=== PATIENT | female | born 1965 | race Caucasian/White ===

== ENCOUNTER 2017-07-09 10:32 | Outpatient (CLI) | payer OTHER ==
--- NOTE | 2017-07-09 11:41 | RAD ---
LEFT SHOULDER THREE VIEWS: History: 52-year-old female with history of left shoulder pain. FINDINGS: No fracture or dislocation. Mild degenerative changes. IMPRESSION: Mild degenerative changes. No fracture or dislocation or other acute process. POS: OFF
== END 2017-07-09 10:33 | disposition home or self-care (01) ==
LOC: RAD-FRANK 10:32
PROVIDERS: ATTEND Nurse Practitioner Family
DX: M25.512 Pain in left shoulder (principal); M19.012 Primary osteoarthritis, left shoulder

== ENCOUNTER 2018-05-23 14:00 | Outpatient (CLI) | payer OTHER ==
--- NOTE | 2018-05-23 15:14 | RAD ---
CHEST 2 VIEWS: Date: 05/23/18 HISTORY: Chest pain. COMPARISON: None. FINDINGS: The lungs are clear. No pneumothorax or effusion. Cardiac silhouette and mediastinal contour within n ormal limits, aside from left atrial enlargement. No acute osseous abnormality. IMPRESSION: Left atrial enlargement, otherwise no acute intrathoracic abnormality. POS: [facility]
== END 2018-05-23 14:01 | disposition home or self-care (01) ==
LOC: RAD-FRANK 14:00
PROVIDERS: ATTEND Nurse Practitioner Family
DX: R07.9 Chest pain, unspecified (principal); I51.7 Cardiomegaly
CPT/HCPCS: 71046

== ENCOUNTER 2018-08-22 11:06 | Outpatient (CLI) | payer OTHER ==
--- NOTE | 2018-08-22 11:42 | RAD ---
4 views cervical spine. HISTORY: Neck pain. AP, lateral, open-mouth odontoid and swimmer's views cervical spine obtained. Images demonstrate no evidence of acute cervical spine fractures or bony lesions. IMPRESSION: Normal 4 views cervical spine.
== END 2018-08-22 11:07 | disposition home or self-care (01) ==
LOC: RAD-FRANK 11:06
PROVIDERS: ATTEND Nurse Practitioner Family
DX: M54.2 Cervicalgia (principal)
CPT/HCPCS: 72040

== ENCOUNTER 2018-11-20 11:39 | Outpatient (CLI) | payer OTHER ==
--- NOTE | 2018-11-20 11:55 | RAD ---
EXAM: Chest 2 views: HISTORY: Chest pain COMPARISON: 05/23/2018 FINDINGS: There is a normal-sized cardiomediastinal silhouette. There is no evidence of consolidation, mass, or pleural effusion. The bones are unremarkable. IMPRESSION: No evidence of acute cardiopulmonary disease
== END 2018-11-20 11:40 | disposition home or self-care (01) ==
LOC: RAD-FRANK 11:39
PROVIDERS: ATTEND Nurse Practitioner Family
DX: R50.9 Fever, unspecified (principal)
CPT/HCPCS: 71046

== ENCOUNTER 2018-11-21 05:09 | Inpatient (IN) | payer BC, SELFPAY ==
[2018-11-21 05:52] LABS: #Lymphocytes 0.6 thou/uL (1.20-3.40); #Monocytes 0.6 thou/uL (0.11-0.59); #Neutrophils 7.6 thou/uL (1.40-6.50); %Basophils 0.3 % (0.0-1.0); %Lymphocytes 7.1 % (21.0-51.0); %Monocytes 6.3 % (0.0-10.0); %Neutrophils 86.4 % (42.0-75.0); Hemoglobin 12.9 g/dL (12.0-16.0); Mean Corpuscular HGB CONC 34.8 g/dL (32.0-36.0); Mean Corpuscular Hemoglobin 29.9 pg (27.0-31.0); Mean Corpuscular Volume 85.8 fL (78.0-98.0); Mean Platelet Volume 7.3 fL (7.4-10.4); Platelet Count 256 thou/uL (130-400); RBC Distribution Width 13.6 % (11.5-14.5); Red Blood Cell (RBC) Count 4.33 mill/uL (4.20-5.40); White Blood Cell (WBC) Count 8.8 thou/uL (4.8-10.8)
[2018-11-21 06:21] LABS: ALT (SGPT) 25 U/L (8-55); AST (SGOT) 51 U/L (5-34); Albumin 3.7 g/dL (3.5-5.0); Alkaline Phosphatase 129 U/L (40-150); Anion Gap 15 mmol/L (10-20); BUN (Urea Nitrogen) 14 mg/dL (9.8-20.1); Bilirubin, Total 0.5 mg/dL (0.2-1.2); Calc. Creatinine Clearance 0 mL/min (70-130); Calcium 8.7 mg/dL (7.8-10.44); Carbon Dioxide 20 mmol/L (22-29); Chloride 92 mmol/L (98-107); Estimated GFR-MDRD 45; Globulin 3.1 g/dL (2.4-3.5); Glucose 362 mg/dL (70-105); Potassium 3.3 mmol/L (3.5-5.1); Protein, Total 6.8 g/dL (6.0-8.3); Sodium 124 mmol/L (136-145)
[2018-11-21] MEDS ORDERED: Acetaminophen 500 MG TAB ONE (06:41)
[2018-11-21] MEDS ORDERED: Insulin Regular 300 UNITS/3 ML VIAL ONE (06:41)
--- NOTE | 2018-11-21 07:50 | RAD ---
XR Chest 1 View Portable HISTORY: Fever COMPARISON: None FINDINGS: The heart size is normal. The lungs are well expanded without focal areas of consolidation, pneumothorax or pleural effusions. IMPRESSION: No radiographic evidence of acute cardiopulmonary process.
[2018-11-21] MEDS ORDERED: Potassium Chloride 20 MEQ TAB ONE (08:06)
[2018-11-21 08:12] LABS: Base Excess-Venous -5.5 mmol/L (-2.0 to 3.0); Bicarbonate (HCO3v) 18.2 mmol/L (22.0-28.0); CO2 Tension (PvCO2) 29.7 mmHg (40.0-50.0); Calcium, Ionized 1.03 mmol/L (See Comments:); Chloride 94 mmol/L (98-107); Hemoglobin - Calc 12.1 g/dL (12.0-16.0); Potassium 2.9 mmol/L (3.5-5.1); Sodium 126 mmol/L (138-145); T. Carbon Dioxide 19.1 mmol/L (22.0-28.0); vO2 Saturation-calc 92.9 % (60.0-85.0)
[2018-11-21] MEDS ORDERED: Dextrose 50% Abboject 50 ML SYRINGE SLOW IVP PRN (08:21)
[2018-11-21] MEDS ORDERED: Dextrose 5% in Water 1,000 ML IV PRN (08:21)
[2018-11-21] MEDS ORDERED: 1/2 NS w/KCL 20 mEq 1,000 ML IV SCH (08:30)
[2018-11-21 08:45] LABS: Bilirubin Negative (Negative); Blood, Urine Negative (Negative); Clarity Turbid (Clear); Glucose, Urine (Dipstick) Greater than 1000 mg/dL (Negative); Leukocyte 500 Leu/uL (Negative); Nitrite Negative (Negative); Protein, Urine (Dipstick) Negative (Neg-Trace); RBC/HPF 0-3 HPF (0-3); Urobilinogen Normal mg/dL (Less than 2); WBC/HPF 21-50 HPF (0-3)
[2018-11-21 08:48] LABS: Bacteria/HPF 2+ HPF (None Seen)
[2018-11-21] MEDS ORDERED: Potassium Chloride 20 MEQ in Premix Bag 1 BAG IVPB SCH (09:00)
[2018-11-21 09:02] LABS: Lipase 14 U/L (8-78); Magnesium 1.8 mg/dL (1.6-2.6)
[2018-11-21 09:06] LABS: Phosphorus 1.7 mg/dL (2.3-4.7)
[2018-11-21] MEDS ORDERED: Potassium Chloride 40 MEQ in Premix Bag 1 BAG IVPB SCH (10:45)
[2018-11-21] MEDS ORDERED: Ondansetron PF 4 MG/2 ML Vial ONE (11:20)
[2018-11-21] MEDS ORDERED: Ondansetron ODT 4 MG TAB ONE (11:20)
[2018-11-21] MEDS ORDERED: Acetaminophen 325 MG TAB ONE ×2 (12:32→13:53)
[2018-11-21] MEDS ORDERED: Acetaminophen 325 MG TAB PO SCH (12:45)
[2018-11-21] MEDS ORDERED: hydrALAZINE 20 MG/ML VIAL SLOW IVP PRN (12:45)
[2018-11-21] MEDS: Ondansetron ODT 4 MG TAB PO PRN (12:52)
[2018-11-21] MEDS ORDERED: Vancomycin HCl 1 GM in Premix Bag 1 BAG IVPB SCH (13:00)
[2018-11-21] MEDS ORDERED: Famotidine/PF 20 mg/2ml Vial ONE (13:53)
[2018-11-21] MEDS ORDERED: Levofloxacin 500 mg/D5W 100 ml Premix Bag ONE (13:53)
[2018-11-21] MEDS ORDERED: Ibuprofen 200 MG TAB ONE (13:57)
[2018-11-21] MEDS ORDERED: Gentamicin Sulfate 80 MG in Premix Bag 1 BAG IVPB SCH (14:45)
[2018-11-21] MEDS: Famotidine/PF 20 mg/2ml Vial SLOW IVP SCH ×2 (14:54→20:11)
[2018-11-21 14:58] VITALS: BMI 30.4
[2018-11-21] MEDS ORDERED: hydrALAZINE 20 MG/ML VIAL ONE (15:13)
[2018-11-21] MEDS ORDERED: Potassium Phosphate 15 MMOL in Sodium Chloride 0.9% 250 ML 250 ML IVPB SCH (15:15)
--- NOTE | 2018-11-21 15:31 | CT ---
CT STONE PROTOCOL: HISTORY:Fever, sepsis COMPARISON: None DISCLAIMER: Absence of oral and IV contrast reduces the sensitivity of the exam particularly for the evaluation of solid organs and bowel. FINDINGS: The lung bases are clear. No free air or free fluid is seen in the abdomen or pelvis. The patient is status post cholecystectomy. There is a 1.5 cm calculus in the superior calyx of the left kidney. No calculi are seen in the right kidney, either ureter or the urinary bladder. No hydroureteronephrosis is noted in either side. There is fecal material in the colon. No aneurysmal dilatation of the abdominal aorta is seen. Degene rative changes are seen in the spine. IMPRESSION: Nonobstructing 15 mm calculus in the left kidney.
--- NOTE | 2018-11-21 15:39 | HP ---
PRIMARY CARE PHYSICIAN: Bebe Fountain. CHIEF COMPLAINT: Fever with elevated blood sugar over the last 3 days. HISTORY OF PRESENT ILLNESS: The patient is a 53-year-old female with diabetes mellitus type 1, on insulin pump with recurrent UTIs, presented to the emergency room with above complaints. Last hospitalization at this facility was in 2017 for pyelonephritis requiring PICC line and Invanz for 2 weeks as outpatient. She was seen by Infectious Disease at that time. The patient presented to the emergency room with fever, nausea, vomiting, along with elevated blood sugar over the last 3 days. She also had some right-sided flank pain along with burning in the urination. She had a dry cough without any production. Vomitus was nonbilious. She denies any abdominal pain, diarrhea, or constipation. Her maximum temperature at home was 102 degree Fahrenheit. In the emergency room, initial vital signs showed temperature of 102.8, respirations of 18, pulse rate of 99 with blood pressure of 121/69, O2 saturation 96% on room air. PAST MEDICAL HISTORY: 1. Diabetes mellitus type 1 diagnosed at the age of 21, currently on insulin pump with diabetic retinopathy, neuropathy. 2. History of recurrent UTIs. 3. Pyelonephritis. 4. Hypertension. 5. History of Karen thyroiditis. 6. Anxiety and depression. PAST SURGICAL HISTORY: 1. Appendectomy. 2. Cholecystectomy. 3. Hysterectomy. 4. Partial nephrectomy. 5. Tonsillectomy. ALLERGIES: THE PATIENT IS ALLERGIC TO SEVERAL MEDICATIONS INCLUDING ASPIRIN, CIPRO, KEFLEX, NSAIDS, PENICILLIN, SULFA. FAMILY HISTORY: Negative for heart disease. SOCIAL HISTORY: The patient currently lives at home with her family. She denies current use of tobacco, alcohol, or drug use. REVIEW OF SYSTEMS: All other review of systems was reviewed and was found negative. PHYSICAL EXAMINATION: VITAL SIGNS: As discussed above. GENERAL: A 53-year-old female, ill-appearing. HEENT: Head, atraumatic and normocephalic. Sclerae anicteric. Moist mucous membranes. No oral lesion. NECK: Supple. No JVD. No carotid bruit. LUNGS: Clear to auscultation bilaterally. No wheezing, rales, or rhonchi. HEART: S1, S2 present. Regular rate and rhythm. No rubs or gallops appreciated. ABDOMEN: Soft, nontender. Bowel sounds present. There is right-sided flank tenderness. EXTREMITIES: No edema or calf tenderness. NEUROLOGIC: Grossly nonfocal. Moves all 4 extremities. PSYCHIATRY: Alert, awake, oriented x3. SKIN: Warm and dry. LYMPH NODE: No palpable lymph nodes in the neck. PERIPHERAL VASCULAR: Radial pulses palpable bilaterally. MUSCULOSKELETAL: No joint swelling tenderness. LABORATORY FINDINGS: WBC 8.8 with 86% neutrophil. Potassium 2.9 with hemoglobin A1c 9.0, phosphorus 1.7. Troponin was negative. Urinalysis showed 21 to 50 wbc's with 2+ bacteria. Ketones 1.86. Influenza testing was negative. Chest x-ray by my review was negative for infiltrate. EKG by my review showed sinus rhythm with incomplete right bundle branch block, left anterior fascicular block. IMPRESSION: 1. Sepsis with acute organ dysfunction secondary to acute pyelonephritis, rule out obstructive uropathy. 2. Multiple electrolyte abnormalities including hyponatremia with sodium 126, hypokalemia and hypophosphatemia. 3. Diabetes mellitus type 1 with diabetic ketoacidosis. 4. Metabolic acidosis secondary to diabetic ketoacidosis. 5. History of recurrent urinary tract infection. 6. Obesity with a BMI of 30.4. 7. Hypertension. 8. Anxiety. 9. Hypothyroidism. 10. The patient will require 2 to 3 days for stabilization. PLAN: Start IV Vancomycin and Meropenem. Blood and urine cultures sent. Cont Insulin pump. Add moderate sliding scale. IVF. Q4h sugar checks. Replace electrolytes. Resume selected home meds. Plan of care was discussed with the patient in detail. She stated understanding. Job ID: [id number] MTDD
[2018-11-21] MEDS ORDERED: Vancomycin HCl 750 MG in Sodium Chloride 0.9% 250 ML 250 ML IVPB SCH (16:00)
[2018-11-21] MEDS: Famotidine 20 MG TAB PO SCH ×2 (17:26→20:05)
[2018-11-21] MEDS: 1/2 NS w/KCL 20 mEq 1,000 ML IV SCH ×2 (17:30→22:06)
--- NOTE | 2018-11-21 17:35 | HP ---
PRIMARY CARE PHYSICIAN: Bebe Smith at [facility]. CHIEF COMPLAINT: Nausea, vomiting, fever, and elevated blood sugar. HISTORY OF PRESENT ILLNESS: Ms. Panda is a 53-year-old female with a past medical history of hypertension, diabetes mellitus type 1 on insulin, Karen thyroiditis, chronic pyelonephritis, which she sees Dr. Tripathi for chronic UTIs, who had presented to [facility] earlier this morning with her parents due to worsening fever, generalized malaise, cough, abdominal pain, nausea, and vomiting over the last 4 days. She states that her fever has gotten up more itself 104 at home. Upon arriving to [facility], her temp max was found to be 102. She is also reported that her blood sugars have been quite elevated throughout this time as well. She had usually used an insulin pump, however, this was not working to bring her blood sugars down well enough; therefore, she was using insulin shots. She states that she sees an director of archives, Dr. Lucia Galarza in [place] for her diabetes. During her initial workup, portable chest x-ray was found to be unremarkable. Influenza A and B were both negative. Her blood sugar was elevated at 362 and her potassium was low at 3.3, she was treated with 10 units of insulin along with 2 L of IV fluids, recheck showed that the potassium actually dropped to 2.9; therefore, she was given potassium replacement. Hemoglobin A1c was checked and found to be 9.0. Urinalysis showed urine bacteria 2+, 4 to 6 squamous epithelial cells, 21 to 50 wbc's, 500 leukocyte esterase, greater than 1000 glucose, 40 ketones. She also reported some frequency, urgency, and some mild dysuria, however, denied any flank pain. She denied any headache, blurred vision, dizziness, any chest pain, palpitations, any shortness of breath, or any swelling on her upper or lower extremities. She, however, did report fever, chills, generalized malaise, cough which was nonproductive in nature, some mild abdominal pain and bloating with nausea, vomiting x2 episodes late last night. REVIEW OF SYSTEMS: All other systems were reviewed and found to be negative unless mentioned in HPI. PAST MEDICAL HISTORY: Hypertension, hypothyroidism, diabetes mellitus type 1, and chronic pyelonephritis. PAST SURGICAL HISTORY: Appendectomy, cholecystectomy, hysterectomy, nephrectomy on the right, and tonsillectomy. PSYCHIATRIC HISTORY: Includes anxiety and depression. SOCIAL HISTORY: The patient lives at home with her family and her son. She denies any alcohol, tobacco, or illicit drug use. KNOWN ALLERGIES: Aspirin, ciprofloxacin, cephalosporins, NSAIDs, penicillin, sulfa, and Velosef. CURRENT HOME MEDICATIONS: 1. Furosemide 40 mg oral twice daily. 2. Losartan 100 mg oral daily. 3. Effexor 50 mg oral once daily. 4. Hydralazine 25 mg oral once daily. 5. Levothyroxine 175 mcg oral daily. PHYSICAL EXAMINATION: VITAL SIGNS: Blood pressure 111/57, pulse 85, respirations 16, temperature 99.1 , and O2 saturation 93% on room air. GENERAL: The patient is awake, alert, and oriented x3. She is currently lying comfortably in bed and in no acute distress. Her family is at bedside. HEENT: Atraumatic and normocephalic. Pupils are round and reactive to light. Extraocular muscles intact. Moist mucous membranes noted. NECK: Soft and supple. Trachea midline. CARDIOVASCULAR: Positive S1 and S2. Regular rate and rhythm. No murmur auscultated. RESPIRATORY: Clear to auscultation bilaterally. No wheezes, rales, or rhonchi. ABDOMEN: Soft. Some mild diffuse tenderness noted and hyperactive bowel sounds. MUSCULOSKELETAL: Strength 5+ bilaterally in upper and lower extremities. Moves all extremities equal. No edema noted. NEUROLOGIC: Cranial nerves 2 through 12 grossly intact. No focal deficits noted. Speech intact and normal. Gait not assessed. SKIN: Warm, dry, and intact. No rashes. No ulceration noted. PSYCHIATRIC: Good mood and affect. LABORATORY DATA: WBC 8.8, RBC 4.33, hemoglobin 12.9, hematocrit 37.1, platelet 256. Sodium 126, potassium 2.9, anion gap 15, BUN 14, creatinine 1.26, estimated GFR 45, glucose 399. Hemoglobin A1c 9.0. Lactic acid 1.1, calcium 8.7, magnesium 1.8, lipase 14. Urinalysis showed 2+ bacteria, 21 to 50 wbc, 4 to 6 squamous epithelial cells, 500 leukocyte esterase, 40 ketones greater than 1000 glucose. Beta hydroxybutyrate 1.86. DIAGNOSTIC IMAGING: Portable chest x-ray showed no evidence of acute cardiopulmonary process. ASSESSMENT AND PLAN: 1. Uncontrolled diabetes, type 1. The patient will be placed on insulin sliding scale at this time with frequent Accu-Cheks. Her A1c was found to be 9.0. We will recheck BMP and beta hydroxybutyrate. She will also be started on maintenance fluids at this time. She had currently received a total of 2 L so far in the ED. 2. Fever. We will treat symptomatically at this time and monitor symptoms closely. Her urinalysis showed some bacteria and leukocyte esterase; however, there were some squamous epithelial cells. Due to the patient 's frequent history of urinary tract infections, we will send for culture along with blood cultures prior to starting antibiotics. White count is normal at this time. 3. Hypokalemia: She was replaced in the ED, we will recheck potassium level and BMP and monitor closely and replace as needed. 4. Hypertension, currently stable at this time. She will be resumed on her home regimen. 5. Acute on chronic kidney disease, stage 2. As above, she will be started on maintenance fluids. We will hold nephrotoxic medications until her renal status returns to baseline. 6. Hypothyroidism. Continue home dose of levothyroxine and we will check a TSH. 7. Deep venous thrombosis and gastrointestinal prophylaxis. 8. Code status. Full code. DISPOSITION: Pending further workup and clinical findings, the patient will likely be discharged home in the next 1 to 2 days. Job ID: [id number] MTDD
[2018-11-21] MEDS: Acetaminophen 325 MG TAB PO PRN (20:04)
[2018-11-21] MEDS: Carvedilol 3.125 MG TAB PO SCH (20:05)
[2018-11-21] MEDS: Insulin Regular 300 UNITS/3 ML VIAL SC PRN (20:06)
[2018-11-21] MEDS: Senokot S 8.6-50 MG TAB PO SCH (20:11)
[2018-11-21] MEDS ORDERED: Meropenem 1 GM in Sodium Chloride 0.9% 100 ML IVPB SCH (22:00)
[2018-11-21] MEDS ORDERED: MEROPENEM 1 GM/50 ML 1 GM in Premix Bag 1 BAG IVPB SCH (22:30)
[2018-11-21] MEDS: Melatonin 3 MG TAB PO PRN (22:42)
[2018-11-22] MEDS: Vancomycin HCl 750 MG in Sodium Chloride 0.9% 250 ML 250 ML IVPB SCH ×2 (02:53→18:58)
[2018-11-22] MEDS: Ondansetron PF 4 MG/2 ML Vial IVP PRN ×3 (04:13→19:49)
[2018-11-22] MEDS: Insulin Regular 300 UNITS/3 ML VIAL SC PRN ×5 (04:51→16:16)
[2018-11-22] MEDS: Acetaminophen 325 MG TAB PO PRN ×3 (05:05→21:58)
[2018-11-22] MEDS: Levothyroxine 150 MCG TAB PO SCH (05:06)
[2018-11-22 05:11] LABS: #Lymphocytes 1.7 thou/uL (1.20-3.40); #Monocytes 1.1 thou/uL (0.11-0.59); #Neutrophils 7.3 thou/uL (1.40-6.50); %Basophils 0.1 % (0.0-1.0); %Eosinophils 0.2 % (0.0-10.0); %Monocytes 11.1 % (0.0-10.0); %Neutrophils 71.7 % (42.0-75.0); Hemoglobin 13.2 g/dL (12.0-16.0); Mean Corpuscular HGB CONC 33.7 g/dL (32.0-36.0); Mean Corpuscular Hemoglobin 29.8 pg (27.0-31.0); Mean Corpuscular Volume 88.2 fL (78.0-98.0); Mean Platelet Volume 7.4 fL (7.4-10.4); Platelet Count 229 thou/uL (130-400); RBC Distribution Width 13.7 % (11.5-14.5); Red Blood Cell (RBC) Count 4.44 mill/uL (4.20-5.40); White Blood Cell (WBC) Count 10.2 thou/uL (4.8-10.8)
[2018-11-22 05:34] LABS: ALT (SGPT) 31 U/L (8-55); AST (SGOT) 36 U/L (5-34); Albumin 3.6 g/dL (3.5-5.0); Alkaline Phosphatase 123 U/L (40-150); Anion Gap 15 mmol/L (10-20); BUN (Urea Nitrogen) 9 mg/dL (9.8-20.1); Bilirubin, Total 0.4 mg/dL (0.2-1.2); Calc. Creatinine Clearance 89 mL/min (70-130); Calcium 8.6 mg/dL (7.8-10.44); Carbon Dioxide 20 mmol/L (22-29); Chloride 99 mmol/L (98-107); Estimated GFR-MDRD 54; Glucose 324 mg/dL (70-105); Lipase 16 U/L (8-78); Protein, Total 6.6 g/dL (6.0-8.3); Sodium 130 mmol/L (136-145)
[2018-11-22 05:44] LABS: Phosphorus 2.3 mg/dL (2.3-4.7)
[2018-11-22] MEDS: MEROPENEM 1 GM/50 ML 1 GM in Premix Bag 1 BAG IVPB SCH ×3 (05:54→21:49)
[2018-11-22] MEDS: Famotidine/PF 20 mg/2ml Vial SLOW IVP SCH (08:17)
[2018-11-22] MEDS: 1/2 NS w/KCL 20 mEq 1,000 ML IV SCH ×2 (08:18→12:26)
[2018-11-22] MEDS: Senokot S 8.6-50 MG TAB PO SCH ×2 (08:24→20:41)
[2018-11-22] MEDS: Carvedilol 3.125 MG TAB PO SCH ×2 (08:27→20:36)
[2018-11-22] MEDS: Famotidine 20 MG TAB PO SCH ×2 (08:28→20:41)
[2018-11-22] MEDS: DULoxetine 60 MG CAP PO SCH (08:28)
[2018-11-22] MEDS ORDERED: Escitalopram Oxalate 20 mg Tablet PO SCH (09:00)
--- NOTE | 2018-11-22 10:52 | PDOC.HOSPP ---
- Subjective Encounter Date: 11/22/18 Encounter Time: 08:00 Subjective: Patient seen and examined for Sepsis. Feels somewhat better. Fever/flank pain + . No other complaints. No overnight events - Objective Vital Signs & Weight: Vital Signs (12 hours) Temp Pulse Resp BP Pulse Ox 11/22/18 08:56 100.9 F H 90 18 120/61 99 11/22/18 08:00 99 11/22/18 07:29 96 11/22/18 04:17 99.0 F 83 16 130/68 96 11/21/18 23:57 99.8 F H 81 16 108/57 L 95 Weight Weight 199 lb 15.348 oz I&O: 11/21/18 11/22/18 11/23/18 06:59 06:59 06:59 Intake Total 1080 1250 Balance 1080 1250 Result Diagrams: 11/22/18 04:51 11/22/18 04:51 Additional Labs: Accuchecks 11/22/18 11/22/18 11/21/18 08:00 04:04 23:53 POC Glucose 289 H 268 H 306 H 11/21/18 11/21/18 20:03 17:14 POC Glucose 303 H 349 H Radiology Reviewed by me: Yes (CT stone protocol - Renal calculi) Hospitalist ROS - Review of Systems Cardiovascular: denies: chest pain, palpitations, orthopnea, paroxysmal noc. dyspnea, edema, light headedness, other Gastrointestinal: denies: nausea, vomitting, abdominal pain, diarrhea, constipation, melena, hematochezia, other - Medication Medications: Active Medications Generic Name Dose Route Start Last Admin Trade Name Estevanq PRN Reason Stop Dose Admin Acetaminophen 650 mg 11/21/18 08:21 11/22/18 08:27 Tylenol PO 650 mg Q4H PRN Administration Headache/Fever/Mild Pain (1-3) Carvedilol 3.125 mg 11/21/18 21:00 11/22/18 08:27 Coreg PO 3.125 mg BID JUAN Administration Duloxetine HCl 60 mg 11/22/18 09:00 11/22/18 08:28 Cymbalta PO 60 mg DAILY JUAN Administration Famotidine 20 mg 11/21/18 09:00 11/22/18 08:17 Pepcid SLOW IVP 20 mg Q12HR JUAN Administration Famotidine 20 mg 11/21/18 09:00 11/22/18 08:28 Pepcid PO Not Given BID JUAN Vancomycin HCl 750 mg/ Sodium 250 mls @ 250 mls/hr 11/22/18 03:00 11/22/18 02 :53 Chloride IVPB 250 mls 0300,1500 JUAN Administration Meropenem 1 gm/ Device 50 mls @ 100 mls/hr 11/22/18 06:00 11/22/18 05:54 IVPB 50 mls Q8HR JUAN Administration Insulin Human Regular 0 units 11/21/18 08:21 11/22/18 08:16 Humulin R SC 6 unit .MODERATE SLIDING SC PRN Administration Moderate Correctional Scale Insulin Human Regular 0 units 11/21/18 08:21 11/21/18 20:06 Humulin R SC 4 unit .BEDTIME SLIDING SC PRN Administration Bedtime Correctional Scale Levothyroxine Sodium 150 mcg 11/22/18 06:00 11/22/18 05:06 Synthroid PO 150 mcg 0600 JUAN Administration Melatonin 6 mg 11/21/18 22:25 11/21/18 22:42 Melatonin PO 6 mg HS PRN Administration Insomnia Ondansetron HCl 4 mg 11/21/18 08:21 11/21/18 12:52 Zofran Odt PO 4 mg Q6H PRN Administration Nausea/Vomiting Ondansetron HCl 4 mg 11/21/18 08:21 11/22/18 08:29 Zofran IVP 4 mg Q6H PRN Administration Nausea/Vomiting Senna/Docusate Sodium 2 tab 11/21/18 21:00 11/22/18 08:24 Senokot S PO 2 tab BID JUAN Administration - Exam General Appearance: NAD Neck: supple, no JVD Heart: RRR, no gallops, no rubs Heart - other findings: no heaves/pulsations Respiratory: CTAB, no wheezes, no ronchi Gastrointestinal: soft, non-tender, non-distended, normal bowel sounds Extremities: no cyanosis, no edema Neurological: no new deficit Psychiatric: normal affect, A&O x 3 Hosp A/P - Plan DVT proph w/SCDs IMPRESSION: 1. Sepsis with acute organ dysfunction secondary to acute pyelonephritis. 2. Hyponatremia/Hypokalemia/Hypophosphatemia. 3. Diabetes mellitus type 1 with diabetic ketoacidosis. 4. Metabolic acidosis secondary to diabetic ketoacidosis. 5. History of recurrent urinary tract infection. 6. Obesity with a BMI of 30.4. 7. Hypertension. 8. Anxiety. 9. Hypothyroidism. 10. Renal calculi - nonobstructing 11. Obesity 30.4 PLAN: Cont IV Vancomycin and Meropenem. Monitor Vancomycin level Await Blood and urine cultures Home Insulin pump not functioning. Add Lantus 10 units BID Cont moderate sliding scale. Reduce IVF to 75 ml/hr Cont Q4h sugar checks. Levothyroxine dose reduced Cont other meds as above
[2018-11-22] MEDS ORDERED: Insulin Glargine 15 UNITS in Pre-Filled Syringe SC SCH (12:15)
[2018-11-22] MEDS: Ondansetron ODT 4 MG TAB PO PRN (12:51)
[2018-11-22] MEDS: Venlafaxine HCl 25 MG TAB PO SCH (15:54)
[2018-11-22] MEDS: HYDROcodone/Acetaminophen 5/325 mg Tablet PO PRN ×2 (15:59→20:41)
[2018-11-22] MEDS: Morphine 2 MG/ML SYRINGE SLOW IVP PRN (19:51)
[2018-11-22] MEDS: Insulin Glargine 15 UNITS in Pre-Filled Syringe SC SCH (20:42)
[2018-11-22] MEDS ORDERED: Insulin Glargine 10 UNITS in Pre-Filled Syringe 1 EACH SC SCH (21:00)
[2018-11-22] MEDS: Melatonin 3 MG TAB PO PRN (21:57)
--- NOTE | 2018-11-22 22:51 | CON ---
DATE OF CONSULTATION: REASON FOR CONSULTATION: Pyelonephritis. HISTORY OF PRESENT ILLNESS: A 53-year-old patient whom I had treated in 2017 for an invasive urinary tract infection with pyelonephritis. She has type 1 diabetes mellitus and has had multiple episodes of UTIs and I do not think she ever had a cystoscopy, but previous imaging studies did not show any obstruction. At this time, she developed symptoms about a week before she went to her doctor at [facility] and was given nitrofurantoin, but persisted with symptoms and then developed flank pain in the right side with fever, hyperglycemia, was admitted and started on antimicrobial therapy. She already feels improved since admission. Some headaches, feels her eye swollen, but vision is a little bit blurred. No sore throat, odynophagia, or dysphagia. No dental pain. No back pain. A little bit of cough, but no sputum production. No dyspnea or chest pain. She has quite severe pain in the right flank area, but not in other parts of her abdomen. The dysuria has improved since she was admitted. No joint symptoms. No skin disorder. No neurological symptoms. PAST MEDICAL HISTORY: Type 1 diabetes with an insulin pump, retinopathy, neuropathy, recurrent UTIs, pyelonephritis, treated in 2017 with PICC line and IV Invanz, hypertension, Karen thyroiditis, anxiety, depression. PAST SURGICAL HISTORY: Appendectomy, cholecystectomy, hysterectomy, partial nephrectomy, tonsillectomy. ALLERGIES: ASPIRIN, CIPROFLOXACIN, PENICILLIN, SULFA DRUGS, NSAIDS, KEFLEX. FAMILY HISTORY: Noncontributory. SOCIAL HISTORY: Lives with family. Never a smoker. CURRENT MEDICATIONS: 1. Tylenol. 2. Coreg. 3. Dextrose. 4. Cymbalta. 5. Pepcid. 6. Glucagon. 7. Insulin. 8. Melatonin. 9. Meropenem. 11. Vancomycin. PHYSICAL EXAMINATION: VITAL SIGNS: T-max 102.7, she is now 100.9, BP 116/56, pulse 80, respirations 18, O2 saturation 96. SKIN: Normal. The patient has a peripheral IV access. GENERAL: She is voiding in the toilet. Does not appear in distress. HEENT: No lymphadenopathy. Mild periorbital edema. Pupils are equal. Conjunctivae are normal. Sclerae are normal. Oral cavity is normal. Numerous teeth in place with some decay. NECK: Supple. No jugular vein distention or carotid bruits. LUNGS: Symmetric, clear breath sounds. HEART: S1 and S2, regular rate. No S3, S4, or murmurs. ABDOMEN: Soft with marked flank tenderness, right side. No organomegaly. No bladder distention. EXTREMITIES: No joint inflammatory activity. No edema. Pulses are 1+ in dorsalis pedis. NEURO: Nonfocal including cognitive function. LABORATORY DATA: White cell count is 8.8, hemoglobin 12.9, platelets 256, 86% neutrophils and pH 7.39, pCO2 29, PO2 65. Chemistry, sodium 124, potassium 3.3, creatinine 1.26 and now is down to 1.06. Glucose was 3558 and AST 51. Other liver profile normal. Albumin 3.7, lipase 14. Urinalysis, 21 to 50 wbc's and microbiology with gram-negative sury retrieved from urine yet to be identified, susceptibility tested. Two set of blood cultures thus far no growth. Influenza screen was negative. Abdomen and pelvis CT, there is a 15-mm calculus in left kidney, nonobstructing. The lung bases are clear. ASSESSMENT: 1. Type 1 diabetes. 2. Recurrent urinary tract infections with one prior episode of pyelonephritis, but no evidence of obstruction in the past. No urinary retention. 3. Recurrence of pyelonephritis with likely gram-negative sury as the culprit here. No evidence of structural lesions at this point in time. We will discontinue vancomycin, continue meropenem until the final identification of the organism and then decide what outpatient therapy will be. In view of the numerous episodes, she may need a cystoscopy. She may have already had one done. We will have to double-check with the patient. Job ID: [id number] [facility]
[2018-11-23] MEDS: HYDROcodone/Acetaminophen 5/325 mg Tablet PO PRN ×2 (01:19→10:50)
[2018-11-23] MEDS: Insulin Regular 300 UNITS/3 ML VIAL SC PRN ×2 (01:21→04:17)
[2018-11-23] MEDS ORDERED: traMADol HCl 50 MG TAB PO SCH ×2 (01:30→19:45)
[2018-11-23] MEDS ORDERED: diphenhydrAMINE 25 MG CAP PO SCH (01:30)
[2018-11-23] MEDS: 1/2 NS w/KCL 20 mEq 1,000 ML IV SCH (04:05)
[2018-11-23 04:18] LABS: #Lymphocytes 1.5 thou/uL (1.20-3.40); #Monocytes 0.8 thou/uL (0.11-0.59); #Neutrophils 5.2 thou/uL (1.40-6.50); %Lymphocytes 20.4 % (21.0-51.0); %Neutrophils 69.5 % (42.0-75.0); Hemoglobin 10.6 g/dL (12.0-16.0); Mean Corpuscular HGB CONC 34.4 g/dL (32.0-36.0); Mean Corpuscular Hemoglobin 29.9 pg (27.0-31.0); Mean Corpuscular Volume 86.9 fL (78.0-98.0); Mean Platelet Volume 7.1 fL (7.4-10.4); Platelet Count 229 thou/uL (130-400); RBC Distribution Width 13.6 % (11.5-14.5); Red Blood Cell (RBC) Count 3.56 mill/uL (4.20-5.40); White Blood Cell (WBC) Count 7.5 thou/uL (4.8-10.8)
[2018-11-23 04:45] LABS: Albumin 2.9 g/dL (3.5-5.0); Anion Gap 7 mmol/L (10-20); BUN (Urea Nitrogen) 6 mg/dL (9.8-20.1); BUN/Creatinine Ratio 6.98; Calc. Creatinine Clearance 110 mL/min (70-130); Calcium 8.4 mg/dL (7.8-10.44); Carbon Dioxide 26 mmol/L (22-29); Chloride 99 mmol/L (98-107); Estimated GFR-MDRD 69; Glucose 244 mg/dL (70-105); Magnesium 1.8 mg/dL (1.6-2.6); Phosphorus 1.7 mg/dL (2.3-4.7); Potassium 3.7 mmol/L (3.5-5.1); Sodium 128 mmol/L (136-145)
[2018-11-23] MEDS: Levothyroxine 150 MCG TAB PO SCH (05:00)
[2018-11-23] MEDS: MEROPENEM 1 GM/50 ML 1 GM in Premix Bag 1 BAG IVPB SCH ×3 (05:01→22:18)
[2018-11-23] MEDS ORDERED: Potassium Phosphate 15 MMOL in Sodium Chloride 0.9% 250 ML 250 ML IVPB SCH (05:30)
[2018-11-23] MEDS: Morphine 2 MG/ML SYRINGE SLOW IVP PRN (08:15)
[2018-11-23] MEDS: Acetaminophen 325 MG TAB PO PRN ×2 (08:15→19:07)
[2018-11-23] MEDS: Ondansetron PF 4 MG/2 ML Vial IVP PRN (08:15)
[2018-11-23] MEDS ORDERED: K-Phos Neutral 250 MG TAB PO SCH (08:30)
[2018-11-23] MEDS: Carvedilol 3.125 MG TAB PO SCH ×2 (09:48→21:04)
[2018-11-23] MEDS: Famotidine 20 MG TAB PO SCH ×2 (09:48→21:03)
[2018-11-23] MEDS: DULoxetine 60 MG CAP PO SCH (09:48)
[2018-11-23] MEDS: Insulin Glargine 15 UNITS in Pre-Filled Syringe SC SCH (10:01)
[2018-11-23] MEDS: Senokot S 8.6-50 MG TAB PO SCH ×2 (10:04→21:03)
[2018-11-23] MEDS: Venlafaxine HCl 25 MG TAB PO SCH ×2 (10:04→11:05)
[2018-11-23] MEDS ORDERED: NS 0.9% w/ 20 MEQ KCL 1,000 ML/1,000 ML BAG IV SCH (10:45)
[2018-11-23] MEDS ORDERED: PROVENTIL INHALER 6.7 G (200 INHALATIONS) INH PRN (15:04)
[2018-11-23] MEDS: K-Phos Neutral 250 MG TAB PO SCH ×2 (15:08→21:03)
[2018-11-23] MEDS: traMADol HCl 50 MG TAB PO PRN (17:21)
[2018-11-23] MEDS: NS 0.9% w/ 20 MEQ KCL 1,000 ML/1,000 ML BAG IV SCH (17:24)
--- NOTE | 2018-11-23 19:44 | PDOC.HOSPP ---
- Subjective Encounter Date: 11/23/18 Encounter Time: 11:00 Subjective: Patient seen and examined for Sepsis. Rt sided flank pain. Some nausea. No vomiting. No fever or dysuria. No new complaints. No overnight events - Objective Vital Signs & Weight: Vital Signs (12 hours) Temp Pulse Resp BP Pulse Ox 11/23/18 18:45 101.0 F H 11/23/18 16:00 98.1 F 11/23/18 12:20 99.2 F 11/23/18 08:00 94 L 11/23/18 07:45 101.2 F H 94 18 136/75 94 L Weight Admit Weight 199 lb 15.348 oz Weight 199 lb 15.348 oz I&O: 11/22/18 11/23/18 11/24/18 06:59 06:59 06:59 Intake Total 1080 3880 1632 Balance 1080 3880 1632 Result Diagrams: 11/23/18 04:00 11/23/18 04:00 Additional Labs: Accuchecks 11/23/18 11/23/18 11/23/18 16:08 12:20 07:42 POC Glucose 154 H 224 H 155 H 11/23/18 11/23/18 11/22/18 04:07 00:03 20:07 POC Glucose 235 H 203 H 188 H Laboratory Tests 11/23/18 04:00 Phosphorus 1.7 L Microbiology 11/21/18 07:55 Urine voided Urine Culture - Final Klebsiella pneumoniae ssp pneu 11/21/18 07:47 Venous blood - Left Arm Blood Culture - Preliminary NO GROWTH AT 48 HOURS Hospitalist ROS - Review of Systems Cardiovascular: denies: chest pain, palpitations, orthopnea, paroxysmal noc. dyspnea, edema, light headedness, other Gastrointestinal: denies: nausea, vomitting, abdominal pain, diarrhea, constipation, melena, hematochezia, other - Medication Medications: Active Medications Generic Name Dose Route Start Last Admin Trade Name Freq PRN Reason Stop Dose Admin Acetaminophen 650 mg 11/21/18 08:21 11/23/18 19:07 Tylenol PO 650 mg Q4H PRN Administration Headache/Fever/Mild Pain (1-3) Carvedilol 3.125 mg 11/21/18 21:00 11/23/18 09:48 Coreg PO 3.125 mg BID JUAN Administration Duloxetine HCl 60 mg 11/22/18 09:00 11/23/18 09:48 Cymbalta PO 60 mg DAILY JUAN Administration Famotidine 20 mg 11/21/18 09:00 11/23/18 09:48 Pepcid PO 20 mg BID JUAN Administration Meropenem 1 gm/ Device 50 mls @ 100 mls/hr 11/22/18 06:00 11/23/18 15:06 IVPB 50 mls Q8HR JUAN Administration Potassium Chloride/Sodium Chloride 1,000 ml in 1,000 mls @ 50 mls/hr 11/23/18 15:58 11/23/18 17:24 Ns 0.9% W/ 20 Meq Kcl IV 1,000 mls .Q20H JUAN Administration Insulin Human Regular 0 units 11/21/18 08:21 11/23/18 04:17 Humulin R SC 4 unit .MODERATE SLIDING SC PRN Administration Moderate Correctional Scale Insulin Human Regular 0 units 11/21/18 08:21 11/23/18 01:21 Humulin R SC 2 unit .BEDTIME SLIDING SC PRN Administration Bedtime Correctional Scale Levothyroxine Sodium 150 mcg 11/22/18 06:00 11/23/18 05:00 Synthroid PO 150 mcg 0600 JUAN Administration Morphine Sulfate 2 mg 11/22/18 15:42 11/23/18 08:15 Morphine SLOW IVP 11/25/18 15:43 2 mg Q6H PRN Administration Severe Pain (7-10) Ondansetron HCl 4 mg 11/21/18 08:21 11/22/18 12:51 Zofran Odt PO 4 mg Q6H PRN Administration Nausea/Vomiting Ondansetron HCl 4 mg 11/21/18 08:21 11/23/18 08:15 Zofran IVP 4 mg Q6H PRN Administration Nausea/Vomiting Phosphorus 500 mg 11/23/18 12:00 11/23/18 15:08 Kphos Neutral PO 500 mg TID-WM JUAN Administration Senna/Docusate Sodium 1 tab 11/22/18 21:00 11/23/18 10:04 Senokot S PO 1 tab BID JUAN Administration Sodium Chloride 10 ml 11/21/18 08:21 11/23/18 08:23 Flush - Normal Saline IVF 10 ml PRN PRN Administration Saline Flush Tramadol HCl 50 mg 11/23/18 15:04 11/23/18 17:21 Ultram PO 50 mg Q4H PRN Administration Moderate Pain (4-6) Venlafaxine HCl 100 mg 11/22/18 09:00 11/23/18 11:05 Effexor PO 100 mg DAILY JUAN Administration - Exam General Appearance: NAD Neck: supple, no JVD Heart: RRR, no gallops Respiratory: CTAB, no rales Gastrointestinal: soft, non-tender, non-distended, normal bowel sounds Extremities: no edema Skin: no rashes Hosp A/P - Plan IMPRESSION: 1. Sepsis with acute organ dysfunction secondary to acute pyelonephritis ( Klebsiella) 2. Hyponatremia/Hypokalemia/Hypophosphatemia. 3. Diabetes mellitus type 1 with diabetic ketoacidosis. 4. Metabolic acidosis secondary to diabetic ketoacidosis. 5. History of recurrent urinary tract infection. 6. Obesity with a BMI of 30.4. 7. Hypertension. 8. Anxiety. 9. Hypothyroidism. 10. Renal calculi - nonobstructing 11. Obesity 30.4 PLAN: Cont IV Meropenem Replace Phosphorus Home Insulin pump restarted today Cont moderate sliding scale. Reduce IVF to 50 ml/hr Change acuchecks to ACHS and 0200 Cont Levothyroxine and other meds as above
[2018-11-23] MEDS ORDERED: Melatonin 3 MG TAB PO PRN (20:06)
[2018-11-23] MEDS: diphenhydrAMINE 12.5 MG/5 ML UDCUP PO PRN (21:13)
[2018-11-24] MEDS: Acetaminophen 325 MG TAB PO PRN ×3 (02:52→20:23)
--- NOTE | 2018-11-24 03:16 | EKG ---
Test Reason : SEPSIS Blood Pressure : / mmHG Vent. Rate : 092 BPM Atrial Rate : 092 BPM P-R Int : 156 ms QRS Dur : 102 ms QT Int : 372 ms P-R-T Axes : 044 -50 046 degrees QTc Int : 460 ms Normal sinus rhythm Possible Left atrial enlargement Incomplete right bundle branch block Left anterior fascicular block Cannot rule out Anteroseptal infarct , age undetermined Abnormal ECG Confirmed by MARY BERTRAND DO ([id number]), makeup editor JOSIAH MCKEE ([id number] on 11/24/2018 3:15:20 AM Referred By: Confirmed By:MARY BERTRAND DO
[2018-11-24] MEDS: traMADol HCl 50 MG TAB PO PRN ×4 (04:44→23:21)
[2018-11-24] MEDS: MEROPENEM 1 GM/50 ML 1 GM in Premix Bag 1 BAG IVPB SCH ×3 (05:28→21:20)
[2018-11-24] MEDS: Levothyroxine 150 MCG TAB PO SCH (05:28)
[2018-11-24 05:30] LABS: Chloride 102 mmol/L (98-107); Potassium 3.2 mmol/L (3.5-5.1); Sodium 135 mmol/L (136-145)
[2018-11-24 05:31] LABS: Calcium 7.9 mg/dL (7.8-10.44); Glucose 116 mg/dL (70-105)
[2018-11-24 05:33] LABS: Anion Gap 12 mmol/L (10-20); Carbon Dioxide 24 mmol/L (22-29)
[2018-11-24 05:35] LABS: BUN (Urea Nitrogen) 6 mg/dL (9.8-20.1); Calc. Creatinine Clearance 122 mL/min (70-130); Estimated GFR-MDRD 79
[2018-11-24 05:47] LABS: Phosphorus 2.5 mg/dL (2.3-4.7)
[2018-11-24] MEDS: Senokot S 8.6-50 MG TAB PO SCH ×2 (08:57→20:24)
[2018-11-24] MEDS: K-Phos Neutral 250 MG TAB PO SCH ×3 (08:57→17:12)
[2018-11-24] MEDS: DULoxetine 60 MG CAP PO SCH (08:58)
[2018-11-24] MEDS: Carvedilol 3.125 MG TAB PO SCH ×2 (08:58→20:24)
[2018-11-24] MEDS: Famotidine 20 MG TAB PO SCH ×2 (08:58→20:24)
[2018-11-24] MEDS: Venlafaxine HCl 25 MG TAB PO SCH (09:52)
[2018-11-24] MEDS: NS 0.9% w/ 20 MEQ KCL 1,000 ML/1,000 ML BAG IV SCH (11:33)
[2018-11-24] MEDS ORDERED: Potassium Chloride 10 MEQ TAB PO SCH (12:00)
[2018-11-24] MEDS ORDERED: Furosemide 40 MG TAB PO PRN (13:25)
--- NOTE | 2018-11-24 16:04 | PRG ---
DATE OF SERVICE: 11/24/2018 SUBJECTIVE: Ms. Panda is feeling better. No more dysuria. She is still with moderate flank pain. No cough or sputum production. Maybe some cough still, but not as much as before. OBJECTIVE: VITAL SIGNS: She has been with a T-max 101 on November 23, she is now 99.8. Other vital signs are normal. GENERAL: Awake, alert, and oriented. HEENT: Ocular movements conjugate. LUNGS: Clear. HEART: S1 and S2, regular rate. ABDOMEN: Moderate pain in the right flank. No bladder distention. LABORATORY DATA: White cell count is 7.5, hemoglobin 10.6, platelets 229. Sodium 135, creatinine 0.77. Microbiology with Klebsiella with a broad susceptibility profile, but in the face of all the allergic reactions the patient has had, we will have to treat her with meropenem again. ASSESSMENT AND DISCUSSION: Type 1 diabetes, recurrent urinary tract infections, prior episode was on 17. No evidence of obstruction. PICC line placement and discharged on IV meropenem in the outpatient setting through my [facility]. She will be able to go home tomorrow after those and follow up with me on Sunday. We will have my nurse set her up the schedule for Sunday. Job ID: [id number]
[2018-11-24] MEDS ORDERED: NS 0.9% w/ 20 MEQ KCL 1,000 ML/1,000 ML BAG IV SCH (16:22)
--- NOTE | 2018-11-24 16:25 | PDOC.HOSPP ---
- Subjective Encounter Date: 11/24/18 Encounter Time: 13:00 Subjective: Patient seen and examined for Pyelonep. Rt sided flank pain improving. No fever/ dysuria. No new complaints. No overnight events - Objective Vital Signs & Weight: Vital Signs (12 hours) Temp Pulse Resp BP Pulse Ox 11/24/18 12:13 99.8 F H 11/24/18 10:18 99.6 F 11/24/18 08:00 92 L 11/24/18 07:50 98.8 F 76 18 132/73 92 L 11/24/18 07:32 95 Weight Admit Weight 199 lb 15.348 oz Weight 199 lb 15.348 oz I&O: 11/23/18 11/24/18 11/25/18 06:59 06:59 06:59 Intake Total 3880 2932 Balance 3880 2932 Result Diagrams: 11/23/18 04:00 11/24/18 04:48 Additional Labs: Accuchecks 11/24/18 11/24/18 11/23/18 11:16 04:49 20:48 POC Glucose 124 H 111 H 138 H 11/23/18 16:08 POC Glucose 154 H Hospitalist ROS - Review of Systems Cardiovascular: denies: chest pain, palpitations, orthopnea, paroxysmal noc. dyspnea, edema, light headedness, other Gastrointestinal: denies: nausea, vomitting, abdominal pain, diarrhea, constipation, melena, hematochezia, other Genitourinary: denies: dysuria, frequency, incontinence, hematuria, retention, other - Medication Medications: Active Medications Generic Name Dose Route Start Last Admin Trade Name Estevanq PRN Reason Stop Dose Admin Acetaminophen 650 mg 11/21/18 08:21 11/24/18 09:33 Tylenol PO 650 mg Q4H PRN Administration Headache/Fever/Mild Pain (1-3) Carvedilol 3.125 mg 11/21/18 21:00 11/24/18 08:58 Coreg PO 3.125 mg BID JUAN Administration Diphenhydramine HCl 25 mg 11/23/18 19:36 11/23/18 21:13 Benadryl PO 25 mg HSPRN PRN Administration Insomnia Duloxetine HCl 60 mg 11/22/18 09:00 11/24/18 08:58 Cymbalta PO 60 mg DAILY JUAN Administration Famotidine 20 mg 11/21/18 09:00 11/24/18 08:58 Pepcid PO 20 mg BID JUAN Administration Meropenem 1 gm/ Device 50 mls @ 100 mls/hr 11/22/18 06:00 11/24/18 14:45 IVPB 50 mls Q8HR JUAN Administration Insulin Human Regular 0 units 11/21/18 08:21 11/23/18 04:17 Humulin R SC 4 unit .MODERATE SLIDING SC PRN Administration Moderate Correctional Scale Insulin Human Regular 0 units 11/21/18 08:21 11/23/18 01:21 Humulin R SC 2 unit .BEDTIME SLIDING SC PRN Administration Bedtime Correctional Scale Levothyroxine Sodium 150 mcg 11/22/18 06:00 11/24/18 05:28 Synthroid PO 150 mcg 0600 JUAN Administration Morphine Sulfate 2 mg 11/22/18 15:42 11/23/18 08:15 Morphine SLOW IVP 11/25/18 15:43 2 mg Q6H PRN Administration Severe Pain (7-10) Ondansetron HCl 4 mg 11/21/18 08:21 11/22/18 12:51 Zofran Odt PO 4 mg Q6H PRN Administration Nausea/Vomiting Ondansetron HCl 4 mg 11/21/18 08:21 11/23/18 08:15 Zofran IVP 4 mg Q6H PRN Administration Nausea/Vomiting Phosphorus 500 mg 11/23/18 12:00 11/24/18 12:00 Kphos Neutral PO Not Given TID-WM JUAN Senna/Docusate Sodium 1 tab 11/22/18 21:00 11/24/18 08:57 Senokot S PO Not Given BID [facility] Sodium Chloride 10 ml 11/21/18 08:21 11/23/18 08:23 Flush - Normal Saline IVF 10 ml PRN PRN Administration Saline Flush Tramadol HCl 50 mg 11/23/18 15:04 11/23/18 17:21 Ultram PO 50 mg Q4H PRN Administration Moderate Pain (4-6) Tramadol HCl 100 mg 11/24/18 04:37 11/24/18 11:35 Ultram PO 100 mg Q6H PRN Administration Severe Pain (7-10) Venlafaxine HCl 100 mg 11/22/18 09:00 11/24/18 09:52 Effexor PO 100 mg DAILY JUAN Administration - Exam General Appearance: NAD Heart: RRR, no gallops, no rubs Respiratory: CTAB, no wheezes, no rales, no ronchi Gastrointestinal: soft, non-distended, normal bowel sounds Gastrointestinal - other findings: Rt sided flank tenderness Extremities: no edema Hosp A/P - Plan DVT proph w/SCDs IMPRESSION: 1. Sepsis with acute organ dysfunction secondary to acute pyelonephritis due to Klebsiella 2. Hyponatremia/Hypokalemia/Hypophosphatemia. 3. Diabetes mellitus type 1 with diabetic ketoacidosis. 4. Metabolic acidosis secondary to diabetic ketoacidosis. 5. History of recurrent urinary tract infection. 6. Obesity with a BMI of 30.4. 7. Hypertension. 8. Anxiety. 9. Hypothyroidism. 10. Renal calculi - nonobstructing 11. Obesity 30.4 PLAN: Cont IV Meropenem 1 gm Q8hr Replace Potassium Cont Home Insulin pump with moderate sliding scale. Reduce IVF to 30 ml/hr Cont other meds as above
[2018-11-24] MEDS: Potassium Chloride 20 MEQ TAB PO SCH (17:12)
[2018-11-24] MEDS: diphenhydrAMINE 12.5 MG/5 ML UDCUP PO PRN (21:20)
[2018-11-25] MEDS: MEROPENEM 1 GM/50 ML 1 GM in Premix Bag 1 BAG IVPB SCH ×2 (05:31→13:02)
[2018-11-25] MEDS: Levothyroxine 150 MCG TAB PO SCH (05:51)
[2018-11-25] MEDS ORDERED: Insulin Regular 300 UNITS/3 ML VIAL SC PRN (06:41)
[2018-11-25] MEDS: DULoxetine 60 MG CAP PO SCH (08:11)
[2018-11-25] MEDS: Famotidine 20 MG TAB PO SCH (08:11)
[2018-11-25] MEDS: Potassium Chloride 20 MEQ TAB PO SCH ×2 (08:11→12:03)
[2018-11-25] MEDS: Carvedilol 3.125 MG TAB PO SCH (08:11)
[2018-11-25] MEDS: K-Phos Neutral 250 MG TAB PO SCH ×2 (08:11→12:03)
[2018-11-25] MEDS: Senokot S 8.6-50 MG TAB PO SCH (08:15)
[2018-11-25] MEDS: traMADol HCl 50 MG TAB PO PRN ×2 (08:19→15:21)
[2018-11-25] MEDS: Venlafaxine HCl 25 MG TAB PO SCH (09:24)
--- NOTE | 2018-11-25 11:52 | SPC ---
Ultrasound-guidedleftupper extremity PICC placement: 06/11/2018 HISTORY: Sepsis, renal infection FINDINGS: Informed consent obtained prior to the procedure. Left antecubital fossa prepped and draped in normal sterile fashion. Skin overlying theleft basilicvein anesthetized with 1% buffered lidocaine. With direct sonographic g uidance, vascular access is obtained via the left basilicvein and an 0.018in wire was advanced to the cavoatrial junction. Intravascular length is calculated at 45 cm and of the PICC is cut according ly. Needle is removed and replaced with a peel-away sheath. The PICC was advanced over the wire. Wire and peel-away sheath were removed. The tip of the catheter overlies the cavoatrial junction. The port flushes well and the catheter is ready for use. Exposure data: 0.2 minutes of fluoroscopic time 833 mGy per centimeter squared IMPRESSION: Successful ultrasound guided placement of a leftupper extremity PICC.
[2018-11-25] MEDS: Morphine 2 MG/ML SYRINGE SLOW IVP PRN (12:05)
[2018-11-25] MEDS: Acetaminophen 325 MG TAB PO PRN (12:58)
[2018-11-25 16:36] VITALS: BP 144/79; TEMP 98
--- NOTE | 2018-11-25 17:14 | DIS ---
DATE OF ADMISSION: 11/21/2018 DATE OF DISCHARGE: 11/25/2018 DISCHARGE DISPOSITION: Home. FOLLOWUP: 1. Follow up with primary care physician, Bebe Smith in 1 week. 2. Follow up with Infectious Disease, Dr. Tripathi in 1 to 2 weeks. 3. The patient will follow up with Dr. Tripathi for outpatient antibiotics. DISCHARGE MEDICATIONS: IV meropenem 1 g every 8 hourly for next 2 weeks. The patient was seen on the day of discharge, denies any new complaints. No chest pain, shortness of breath, palpitations reported. BRIEF HOSPITAL COURSE: The patient is a 53-year-old female with diabetes mellitus type 1, on insulin pump with recurrent UTIs presented to the hospital with fever with elevated blood sugar of last 3 days duration. Workup was consistent with acute pyelonephritis with sepsis. CT renal stone protocol was negative for obstructive uropathy. Urine culture showed Klebsiella pneumoniae, which was pansensitive. Blood cultures remained negative. Due to multiple drug allergies, she was started on meropenem. She had a PICC line placed and we will complete meropenem for [address] Tripathi' recommendation. She appears stable for discharge. DIAGNOSTIC TESTS: CT stone protocol showed nonobstructing 15 mm calculus in the left kidney. WBC count 8.8 with 86.4% neutrophil. Potassium 2.9, sodium 126, hemoglobin A1c 9.0. TSH was 0.0624. Blood cultures were negative. TSH as outpatient is recommended after 4 to 6 weeks. Primary care physician advised to follow. FINAL DIAGNOSES: 1. Sepsis with acute organ dysfunction secondary to acute pyelonephritis due to Klebsiella. 2. Diabetes mellitus type 2 with diabetic ketoacidosis. Ketones on admission were 1.86. 3. Multiple electrolyte abnormalities including Hyponatremia, hypokalemia, and hypophosphatemia. 4. Metabolic acidosis secondary to diabetic ketoacidosis. 5. History of recurrent urinary tract infections. 6. Obesity with a BMI of 30.4. 7. Hypertension. 8. Nonobstructing renal calculi. Urology followup as outpatient recommended. 9. Hypothyroidism with abnormal TSH. Repeat TSH is as outpatient is recommended probably after 4 weeks. 10. Obesity with a BMI of 30.4. 11. Anxiety. 12. Hypertension. PLAN: Plan was discussed with the patient in detail. She stated understanding. Job ID: [id number]
[2018-11-26] MEDS ORDERED: Heparin 1,000 UNITS/ML VIAL ONE (07:20)
== END 2018-11-25 16:46 | disposition home or self-care (01) | DRG 871 ==
LOC: ERS 05:09 → OBSVTOIN 09:04 → ERHOLD 09:04 → ONC 17:17
PROVIDERS: ADMIT Internal Medicine; ATTEND Internal Medicine
PROC: 05HC33Z Insertion of Infusion Device into Left Basilic Vein, Percutaneous Approach (ICD-10-PCS; principal; 2018-11-25)
PROC: B54NZZA Ultrasonography of Left Upper Extremity Veins, Guidance (ICD-10-PCS; 2018-11-25)
DX: A41.9 Sepsis, unspecified organism (principal); E10.10 Type 1 diabetes mellitus with ketoacidosis without coma; N17.9 Acute kidney failure, unspecified; E87.1 Hypo-osmolality and hyponatremia; N10 Acute pyelonephritis; F41.9 Anxiety disorder, unspecified; F32.9 Major depressive disorder, single episode, unspecified; E87.6 Hypokalemia; N18.2 Chronic kidney disease, stage 2 (mild); I12.9 Hypertensive chronic kidney disease with stage 1 through stage 4 chronic kidney disease, or unspecified chronic kidney disease; E03.9 Hypothyroidism, unspecified; E83.39 Other disorders of phosphorus metabolism; E66.9 Obesity, unspecified; N20.0 Calculus of kidney; R65.20 Severe sepsis without septic shock; B96.1 Klebsiella pneumoniae [K. pneumoniae] as the cause of diseases classified elsewhere; Z79.899 Other long term (current) drug therapy; Z79.4 Long term (current) use of insulin; Z90.49 Acquired absence of other specified parts of digestive tract; Z90.710 Acquired absence of both cervix and uterus; Z90.89 Acquired absence of other organs; Z88.0 Allergy status to penicillin; Z88.2 Allergy status to sulfonamides; Z88.8 Allergy status to other drugs, medicaments and biological substances; Z68.30 Body mass index [BMI] 30.0-30.9, adult
CPT/HCPCS: 36415; 36416; 36569; 71045; 74176; 80048; 80053; 80069; 81003; 81015; 82010; 82330; 82803; 83036; 83605; 83690; 83735; 84100; 84443; 84484; 85025; 87040; 87077; 87086; 87186; 87804; 93005; 96361; 96374; C1751; J0360; J1644; J1815; J1956; J2185; J2270; J2405; J3370; J3480; J7050; Q0162; Q0163; S0028

== ENCOUNTER 2019-02-04 08:03 | Emergency (ER) | payer BC ==
[2019-02-04] MEDS ORDERED: Ondansetron PF 4 MG/2 ML Vial ONE (08:44)
[2019-02-04] MEDS ORDERED: Famotidine/PF 20 mg/2ml Vial ONE (08:44)
[2019-02-04 09:11] LABS: Phosphorus 2.7 mg/dL (2.3-4.7)
[2019-02-04 09:18] LABS: ALT (SGPT) 18 U/L (8-55); AST (SGOT) 20 U/L (5-34); Albumin 4.4 g/dL (3.5-5.0); Alkaline Phosphatase 161 U/L (40-110); Anion Gap 17 mmol/L (10-20); BUN (Urea Nitrogen) 9 mg/dL (9.8-20.1); Bilirubin, Total 0.5 mg/dL (0.2-1.2); Calc. Creatinine Clearance 0 mL/min (70-130); Calcium 9.5 mg/dL (7.8-10.44); Carbon Dioxide 23 mmol/L (22-29); Chloride 100 mmol/L (98-107); Estimated GFR-MDRD 54; Globulin 3.1 g/dL (2.4-3.5); Glucose 203 mg/dL (70-105); Potassium 3.8 mmol/L (3.5-5.1); Protein, Total 7.5 g/dL (6.0-8.3); Sodium 136 mmol/L (136-145)
[2019-02-04 09:27] LABS: Bilirubin Negative (Negative); Blood, Urine Negative (Negative); Clarity Clear (Clear); Glucose, Urine (Dipstick) Normal (Negative); Leukocyte Negative Leu/uL (Negative); Nitrite Negative (Negative); Protein, Urine (Dipstick) Negative (Neg-Trace); Urobilinogen Normal mg/dL (Less than 2)
[2019-02-04 09:50] LABS: #Basophils 0.1 thou/uL (0.0-0.2); #Lymphocytes 2.2 thou/uL (1.20-3.40); #Monocytes 0.5 thou/uL (0.11-0.59); #Neutrophils 3.1 thou/uL (1.40-6.50); %Basophils 1.8 % (0.0-1.0); %Eosinophils 0.1 % (0.0-10.0); %Lymphocytes 36.9 % (21.0-51.0); %Monocytes 9.1 % (0.0-10.0); Hemoglobin 14.6 g/dL (12.0-16.0); Mean Corpuscular HGB CONC 34.3 g/dL (32.0-36.0); Mean Corpuscular Hemoglobin 30.4 pg (27.0-31.0); Mean Corpuscular Volume 88.5 fL (78.0-98.0); Mean Platelet Volume 7.6 fL (7.4-10.4); Platelet Count 326 thou/uL (130-400); RBC Distribution Width 13.3 % (11.5-14.5); Red Blood Cell (RBC) Count 4.82 mill/uL (4.20-5.40)
== END 2019-02-04 10:40 | disposition home or self-care (01) ==
LOC: ERS 08:03
DX: R11.2 Nausea with vomiting, unspecified (principal); R19.7 Diarrhea, unspecified; M79.81 Nontraumatic hematoma of soft tissue; E10.40 Type 1 diabetes mellitus with diabetic neuropathy, unspecified; F41.9 Anxiety disorder, unspecified; F32.9 Major depressive disorder, single episode, unspecified; E10.22 Type 1 diabetes mellitus with diabetic chronic kidney disease; I12.9 Hypertensive chronic kidney disease with stage 1 through stage 4 chronic kidney disease, or unspecified chronic kidney disease; N18.9 Chronic kidney disease, unspecified; Z79.899 Other long term (current) drug therapy
CPT/HCPCS: 36416; 80053; 81003; 82010; 83735; 84100; 85025; 96361; 96374; 96375; J2405; S0028

== ENCOUNTER 2019-04-03 12:15 | Emergency (ER) | payer BC ==
[2019-04-03 12:55] LABS: #Lymphocytes 1.7 thou/uL (1.20-3.40); #Monocytes 0.4 thou/uL (0.11-0.59); #Neutrophils 3.3 thou/uL (1.40-6.50); %Basophils 0.4 % (0.0-1.0); %Lymphocytes 30.9 % (21.0-51.0); %Monocytes 7.2 % (0.0-10.0); %Neutrophils 61.5 % (42.0-75.0); Hemoglobin 13.9 g/dL (12.0-16.0); Mean Corpuscular HGB CONC 33.9 g/dL (32.0-36.0); Mean Corpuscular Hemoglobin 30.1 pg (27.0-31.0); Mean Corpuscular Volume 88.7 fL (78.0-98.0); Platelet Count 282 thou/uL (130-400); Red Blood Cell (RBC) Count 4.62 mill/uL (4.20-5.40); White Blood Cell (WBC) Count 5.4 thou/uL (4.8-10.8)
[2019-04-03 13:16] LABS: ALT (SGPT) 13 U/L (8-55); AST (SGOT) 17 U/L (5-34); Albumin 4.1 g/dL (3.5-5.0); Alkaline Phosphatase 140 U/L (40-110); Anion Gap 13 mmol/L (10-20); BUN (Urea Nitrogen) 7 mg/dL (9.8-20.1); Bilirubin, Total 0.3 mg/dL (0.2-1.2); Calc. Creatinine Clearance 0 mL/min (70-130); Calcium 8.9 mg/dL (7.8-10.44); Carbon Dioxide 29 mmol/L (22-29); Chloride 100 mmol/L (98-107); Estimated GFR-MDRD 59; Globulin 3.2 g/dL (2.4-3.5); Glucose 244 mg/dL (70-105); Lipase 14 U/L (8-78); Potassium 3.7 mmol/L (3.5-5.1); Protein, Total 7.3 g/dL (6.0-8.3); Sodium 138 mmol/L (136-145)
[2019-04-03 13:50] LABS: Bilirubin Negative (Negative); Blood, Urine Negative (Negative); Clarity Clear (Clear); Glucose, Urine (Dipstick) 300 mg/dL (Negative); Leukocyte Negative Leu/uL (Negative); Nitrite Negative (Negative); Protein, Urine (Dipstick) Negative (Neg-Trace); Urobilinogen Normal mg/dL (Less than 2)
--- NOTE | 2019-04-03 14:19 | CT ---
CT ABDOMEN NONCONTRAST CT PELVIS NONCONTRAST: (Urolithiasis protocol) DATE: 04/03/2019 HISTORY: 53-year-old female with stage III chronic kidney disease presents with right flank pain and an intend ed weight loss. COMPARISON: 11/21/2018 TECHNIQUE: IV injection of iodinated contrast media: None Oral contrast media: None FINDINGS: Other than for urolithiasis, the lack of IV and oral contrast limits the evaluation. The previously demonstrated approximately 15 mm calculus in left upper pole, is no longer present. Again noted are the cluster of surgical clips adjacent to the superomedial aspect of the right renal upper pole, where there is small focal cortical defect. No renal, ureteral, or bladder calculus. No hydronephrosis. No signs of colonic diverticulitis. Surgi kirby clips adjacent to the proximal right colon. Surgical clips in gallbladder fossa. Within the limitations of a noncontrast scan, no obvious pathology identified involving abdominal aor ta, liver, spleen, pancreas, adrenals, or urinary bladder. No small bowel dilation, ascites, pleural effusion, or pneumoperitoneum. Absent uterus. IMPRESSION: 1) no urolithiasis or obstructive uropathy. 2) interval removal of the previously demonstrated 15 mm left renal upper pole calculus. 3) status post right renal upper pole partial cortical resection. 4) status post cholecystectomy, hysterectomy, and appendectomy.
== END 2019-04-03 16:06 | disposition home or self-care (01) ==
LOC: ERS 12:15
DX: R10.9 Unspecified abdominal pain (principal); E10.40 Type 1 diabetes mellitus with diabetic neuropathy, unspecified; I10 Essential (primary) hypertension; F41.9 Anxiety disorder, unspecified; F32.9 Major depressive disorder, single episode, unspecified; Z79.899 Other long term (current) drug therapy; Z79.4 Long term (current) use of insulin
CPT/HCPCS: 36415; 74176; 80053; 81003; 83690; 85025

== ENCOUNTER 2019-10-07 20:47 | Emergency (ER) | payer BC, OTHER ==
[~2019-10-07 20:47] MED LIST: Iopamidol-370 76% 500 ML 1 ML ONE
[2019-10-07 21:20] LABS: Bacteria/HPF 4+ HPF (None Seen); Bilirubin Negative (Negative); Blood, Urine Negative (Negative); Clarity Clear (Clear); Glucose, Urine (Dipstick) 50 mg/dL (Negative); Ketone, Urine Negative (Negative); Leukocyte 75 Leu/uL (Negative); Nitrite Negative (Negative); Protein, Urine (Dipstick) Negative (Neg-Trace); RBC/HPF 0-3 HPF (0-3); Specific Gravity, Urine 1.004 (1.002-1.036); Squamous Epithelial 0-3 HPF (0-3); Urobilinogen Normal mg/dL (Less than 2); pH, Urine 5.5 (5.0-9.0)
[2019-10-07 21:22] LABS: #Lymphocytes 2.3 thou/uL (1.20-3.40); #Monocytes 0.8 thou/uL (0.11-0.59); #Neutrophils 7.2 thou/uL (1.40-6.50); %Basophils 0.1 % (0.0-1.0); %Eosinophils 0.1 % (0.0-10.0); %Lymphocytes 22.2 % (21.0-51.0); %Monocytes 7.6 % (0.0-10.0); %Neutrophils 70.1 % (42.0-75.0); Hemoglobin 12.4 g/dL (12.0-16.0); Mean Corpuscular HGB CONC 34.4 g/dL (32.0-36.0); Mean Corpuscular Hemoglobin 29.4 pg (27.0-31.0); Mean Corpuscular Volume 85.2 fL (78.0-98.0); Mean Platelet Volume 6.8 fL (7.4-10.4); Platelet Count 365 thou/uL (130-400); RBC Distribution Width 13.1 % (11.5-14.5); Red Blood Cell (RBC) Count 4.23 mill/uL (4.20-5.40); White Blood Cell (WBC) Count 10.3 thou/uL (4.8-10.8)
[2019-10-07] MEDS ORDERED: Morphine 4 MG/ML VIAL ONE ×2 (21:22→22:03)
[2019-10-07] MEDS ORDERED: Ondansetron PF 4 MG/2 ML Vial ONE ×2 (21:29→23:31)
[2019-10-07 21:43] LABS: ALT (SGPT) 16 U/L (8-55); AST (SGOT) 13 U/L (5-34); Alkaline Phosphatase 169 U/L (40-110); Anion Gap 14 mmol/L (10-20); BUN (Urea Nitrogen) 11 mg/dL (9.8-20.1); Bilirubin, Total 0.5 mg/dL (0.2-1.2); Calc. Creatinine Clearance 0 mL/min (70-130); Calcium 8.9 mg/dL (7.8-10.44); Carbon Dioxide 23 mmol/L (22-29); Chloride 93 mmol/L (98-107); Estimated GFR-MDRD 55; Globulin 3.3 g/dL (2.4-3.5); Glucose 248 mg/dL (70-105); Potassium 3.2 mmol/L (3.5-5.1); Protein, Total 7.3 g/dL (6.0-8.3); Sodium 127 mmol/L (136-145)
--- NOTE | 2019-10-07 22:33 | CT ---
CT ABDOMEN AND PELVIS WITH IV CONTRAST 10/07/2019 CLINICAL INFORMATION: Abdominal pain. Patient states right flank pain since last week with region pain to right lower quadr ant. COMPARISON: 07/02/2016. Technique: Multiple contiguous axial CT images are obtained through the abdomen and pelvis with IV contrast. Cor onal reformatted images are provided. FINDINGS: Lower Chest: Mild volume loss at each lung base. Vessels: Abdominal aorta is normal in caliber. Abdomen: Portal vein:Patent Gallbladder: Surgically absent. Liver: Mild intrahepatic biliary ductal dilatation likely related to reservoir effect. Spleen: within normal limits. Pancreas: within normal limits. Adrenals: within normal limits. Kidneys: There is bilateral renal cortical scarring present. Surgical clips are again seen adjacent t o the superior pole right kidney. Extrarenal pelvis on the right is again seen with with caliectasis on the right. No overt hydronephrosis is present. Calculus in the superior pole left kidn ey on prior exam is no longer seen likely due to interval treatment. Bowel: Small to moderate amount retained fecal material is seen throughout the colon. Appendix: Not visualized. Multiple surgical clips are seen in the right lower quadrant. Provided clin ical history indicates history of appendectomy. Peritoneum: No ascites or free air; no fluid collection. Mesentery and Retroperitoneum: No enlarged mesenteric or retroperitoneal lymph nodes. Abdominal Wall: within normal limits. Pelvis: Reproductive Organs: Evidence of hysterectomy. Pelvis within normal limits. Bladder: within normal limits. Bones: Degenerative changes are seen in the visualized lower thoracic spine. IMPRESSION: 1. Evidence of constipation. 2. Bilateral renal cortical scarring greatest involving the superior pole of each kidney. Postoperati ve changes are seen adjacent superior pole right kidney. 3. Cholecystectomy and hysterectomy. 4. No acute findings are seen in the abdomen or pelvis.
[2019-10-07] MEDS ORDERED: HYDROmorphone 0.5 MG/0.5 ML SYRINGE ONE (23:30)
== END 2019-10-07 23:54 | disposition home or self-care (01) ==
LOC: ERS 20:47
DX: N39.0 Urinary tract infection, site not specified (principal); R11.2 Nausea with vomiting, unspecified; E10.40 Type 1 diabetes mellitus with diabetic neuropathy, unspecified; E10.319 Type 1 diabetes mellitus with unspecified diabetic retinopathy without macular edema; E06.3 Autoimmune thyroiditis; I10 Essential (primary) hypertension; F41.9 Anxiety disorder, unspecified; F32.9 Major depressive disorder, single episode, unspecified; Z79.899 Other long term (current) drug therapy
CPT/HCPCS: 74177; 80053; 81003; 81015; 83605; 85025; 87040; 87086; 96361; 96374; 96375; 96376; J1170; J2270; J2405; Q9967

== ENCOUNTER 2019-10-08 23:19 | Emergency (ER) | payer BC ==
[2019-10-08 23:48] LABS: Bacteria/HPF 4+ HPF (None Seen); Bilirubin Negative (Negative); Blood, Urine Negative (Negative); Clarity Clear (Clear); Glucose, Urine (Dipstick) Normal (Negative); Ketone, Urine Negative (Negative); Leukocyte 25 Leu/uL (Negative); Nitrite Negative (Negative); Protein, Urine (Dipstick) Negative (Neg-Trace); RBC/HPF 0-3 HPF (0-3); Specific Gravity, Urine 1.012 (1.002-1.036); Urobilinogen Normal mg/dL (Less than 2)
[2019-10-09 00:07] LABS: #Lymphocytes 1.3 thou/uL (1.20-3.40); #Monocytes 0.6 thou/uL (0.11-0.59); #Neutrophils 6.5 thou/uL (1.40-6.50); %Basophils 0.2 % (0.0-1.0); %Eosinophils 0.1 % (0.0-10.0); %Lymphocytes 15.4 % (21.0-51.0); %Monocytes 7.6 % (0.0-10.0); %Neutrophils 76.8 % (42.0-75.0); Hemoglobin 11.8 g/dL (12.0-16.0); Mean Corpuscular HGB CONC 33.4 g/dL (32.0-36.0); Mean Corpuscular Hemoglobin 29.2 pg (27.0-31.0); Mean Corpuscular Volume 87.5 fL (78.0-98.0); Mean Platelet Volume 6.7 fL (7.4-10.4); Platelet Count 361 thou/uL (130-400); RBC Distribution Width 13.2 % (11.5-14.5); Red Blood Cell (RBC) Count 4.03 mill/uL (4.20-5.40); White Blood Cell (WBC) Count 8.4 thou/uL (4.8-10.8)
[2019-10-09 00:22] LABS: ALT (SGPT) 24 U/L (8-55); AST (SGOT) 43 U/L (5-34); Albumin 3.6 g/dL (3.5-5.0); Alkaline Phosphatase 175 U/L (40-110); Anion Gap 9 mmol/L (10-20); BUN (Urea Nitrogen) 9 mg/dL (9.8-20.1); Bilirubin, Total 0.3 mg/dL (0.2-1.2); Calc. Creatinine Clearance 0 mL/min (70-130); Calcium 8.6 mg/dL (7.8-10.44); Carbon Dioxide 28 mmol/L (22-29); Chloride 98 mmol/L (98-107); Estimated GFR-MDRD 60; Globulin 3.1 g/dL (2.4-3.5); Glucose 137 mg/dL (70-105); Potassium 3.3 mmol/L (3.5-5.1); Protein, Total 6.7 g/dL (6.0-8.3); Sodium 132 mmol/L (136-145)
[2019-10-09] MEDS ORDERED: Acetaminophen 500 MG TAB ONE (01:50)
[2019-10-09] MEDS ORDERED: ADMIXTURE FEE IVPB SCH (02:30)
[2019-10-09] MEDS ORDERED: GENTAMICIN SULFATE IVPB SCH (02:30)
[2019-10-09] MEDS ORDERED: SODIUM CHLORIDE IVPB SCH (02:30)
== END 2019-10-09 03:57 | disposition home or self-care (01) ==
LOC: ERS 23:19
DX: N10 Acute pyelonephritis (principal); E10.40 Type 1 diabetes mellitus with diabetic neuropathy, unspecified; I10 Essential (primary) hypertension; E10.319 Type 1 diabetes mellitus with unspecified diabetic retinopathy without macular edema; F41.9 Anxiety disorder, unspecified; F32.9 Major depressive disorder, single episode, unspecified
CPT/HCPCS: 36415; 80053; 81003; 81015; 85025; 87086; 96365; J1580; J3490

== ENCOUNTER 2019-12-10 10:27 | Emergency (ER) | payer BC, OTHER ==
[2019-12-10 11:10] LABS: #Lymphocytes 1.5 thou/uL (1.20-3.40); #Monocytes 0.5 thou/uL (0.11-0.59); #Neutrophils 4.6 thou/uL (1.40-6.50); %Basophils 0.2 % (0.0-1.0); %Eosinophils 0.3 % (0.0-10.0); %Lymphocytes 23.5 % (21.0-51.0); %Monocytes 6.8 % (0.0-10.0); %Neutrophils 69.2 % (42.0-75.0); Hemoglobin 13.7 g/dL (12.0-16.0); Mean Corpuscular HGB CONC 34.4 g/dL (32.0-36.0); Mean Corpuscular Hemoglobin 30.8 pg (27.0-31.0); Mean Corpuscular Volume 89.6 fL (78.0-98.0); Mean Platelet Volume 7.1 fL (7.4-10.4); Platelet Count 296 thou/uL (130-400); RBC Distribution Width 14.1 % (11.5-14.5); Red Blood Cell (RBC) Count 4.46 mill/uL (4.20-5.40); White Blood Cell (WBC) Count 6.6 thou/uL (4.8-10.8)
[2019-12-10 11:23] LABS: CO2 Tension (PvCO2) 36.9 mmHg (40.0-50.0); Calcium, Ionized 1.03 mmol/L (See Comments:); Chloride 94 mmol/L (98-107); Hemoglobin - Calc 14.4 g/dL (12.0-16.0); Potassium 2.9 mmol/L (3.5-5.1); Sodium 131 mmol/L (138-145); T. Carbon Dioxide 26.1 mmol/L (22.0-28.0); vO2 Saturation-calc 78.8 % (60.0-85.0)
[2019-12-10] MEDS ORDERED: Ondansetron PF 4 MG/2 ML Vial ONE (11:29)
[2019-12-10 11:32] LABS: ALT (SGPT) 13 U/L (8-55); AST (SGOT) 14 U/L (5-34); Albumin 3.8 g/dL (3.5-5.0); Alkaline Phosphatase 184 U/L (40-110); Anion Gap 19 mmol/L (10-20); BUN (Urea Nitrogen) 17 mg/dL (9.8-20.1); Bilirubin, Total 0.5 mg/dL (0.2-1.2); Calc. Creatinine Clearance 0 mL/min (70-130); Calcium 8.8 mg/dL (7.8-10.44); Carbon Dioxide 20 mmol/L (22-29); Chloride 93 mmol/L (98-107); Estimated GFR-MDRD 49; Globulin 3.4 g/dL (2.4-3.5); Glucose 305 mg/dL (70-105); Potassium 3.2 mmol/L (3.5-5.1); Protein, Total 7.2 g/dL (6.0-8.3); Sodium 129 mmol/L (136-145)
[2019-12-10 11:57] LABS: Bilirubin Negative (Negative); Blood, Urine Negative (Negative); Clarity Clear (Clear); Glucose, Urine (Dipstick) 300 mg/dL (Negative); Ketone, Urine Negative (Negative); Leukocyte Negative Leu/uL (Negative); Nitrite Negative (Negative); Protein, Urine (Dipstick) Negative (Neg-Trace); Specific Gravity, Urine 1.003 (1.002-1.036); Urobilinogen Normal mg/dL (Less than 2); pH, Urine 5.5 (5.0-9.0)
[2019-12-10] MEDS ORDERED: Potassium Chloride 20 MEQ TAB ONE (12:37)
[2019-12-11 12:07] LABS: SARS-CoV-2 MS2 Positive; SARS-CoV-2 N Gene Negative; SARS-CoV-2 S Gene Negative; SARS-CoV-2 by NAA Not Detected (NotDetected); SARS-CoV-2 orf1ab Negative
== END 2019-12-10 14:50 | disposition home or self-care (01) ==
LOC: ERS 10:27
DX: E10.65 Type 1 diabetes mellitus with hyperglycemia (principal); R11.2 Nausea with vomiting, unspecified; R19.7 Diarrhea, unspecified; Z20.828 Contact with and (suspected) exposure to other viral communicable diseases; E10.40 Type 1 diabetes mellitus with diabetic neuropathy, unspecified; I10 Essential (primary) hypertension; F41.9 Anxiety disorder, unspecified; F32.9 Major depressive disorder, single episode, unspecified; Z79.899 Other long term (current) drug therapy
CPT/HCPCS: 36415; 80053; 81003; 82010; 82330; 82803; 84484; 85025; 87635; 93005; 96361; 96374; J2405; U0003

== ENCOUNTER 2019-12-30 13:28 | Emergency (ER) | payer BC ==
[2019-12-30 14:22] LABS: #Lymphocytes 1.5 thou/uL (1.20-3.40); #Monocytes 0.5 thou/uL (0.11-0.59); #Neutrophils 8.1 thou/uL (1.40-6.50); %Basophils 0.1 % (0.0-1.0); %Eosinophils 0.1 % (0.0-10.0); %Lymphocytes 14.4 % (21.0-51.0); %Monocytes 4.6 % (0.0-10.0); %Neutrophils 80.7 % (42.0-75.0); Hemoglobin 13.6 g/dL (12.0-16.0); Mean Corpuscular HGB CONC 33.9 g/dL (32.0-36.0); Mean Corpuscular Hemoglobin 30.8 pg (27.0-31.0); Mean Corpuscular Volume 90.8 fL (78.0-98.0); Mean Platelet Volume 6.9 fL (7.4-10.4); Platelet Count 325 thou/uL (130-400); RBC Distribution Width 13.7 % (11.5-14.5); Red Blood Cell (RBC) Count 4.42 mill/uL (4.20-5.40)
[2019-12-30 14:52] LABS: ALT (SGPT) 13 U/L (8-55); AST (SGOT) 16 U/L (5-34); Albumin 3.8 g/dL (3.5-5.0); Alkaline Phosphatase 146 U/L (40-110); Anion Gap 17 mmol/L (10-20); BUN (Urea Nitrogen) 19 mg/dL (9.8-20.1); Bilirubin, Total 0.6 mg/dL (0.2-1.2); Calc. Creatinine Clearance 0 mL/min (70-130); Calcium 8.8 mg/dL (7.8-10.44); Carbon Dioxide 20 mmol/L (22-29); Chloride 100 mmol/L (98-107); Estimated GFR-MDRD 50; Globulin 2.9 g/dL (2.4-3.5); Glucose 236 mg/dL (70-105); Potassium 3.7 mmol/L (3.5-5.1); Protein, Total 6.7 g/dL (6.0-8.3); Sodium 133 mmol/L (136-145)
[2019-12-30] MEDS ORDERED: Promethazine HCl 25 MG/ML VIAL ONE (17:48)
[2019-12-30 19:19] LABS: Bilirubin Negative (Negative); Blood, Urine Negative (Negative); Clarity Clear (Clear); Glucose, Urine (Dipstick) >=1000 mg/dL (Negative); Ketone, Urine 20 mg/dL (Negative); Leukocyte Negative Leu/uL (Negative); Nitrite Negative (Negative); Protein, Urine (Dipstick) Negative (Neg-Trace); Specific Gravity, Urine 1.009 (1.002-1.036); Urobilinogen Normal mg/dL (Less than 2)
--- NOTE | 2019-12-30 20:08 | RAD ---
PORTABLE CHEST: 12/30/19 HISTORY: Elevated blood sugar. COMPARISON: 11/21/18 study. Heart size and mediastinum are within normal limits. The lungs are clear of any infiltrate. No signif icant bony findings. There does appear to be a mild scoliotic change. IMPRESSION: No active intrathoracic disease. POS: OFF
--- NOTE | 2020-01-03 13:26 | EKG ---
Test Reason : Blood Pressure : / mmHG Vent. Rate : 090 BPM Atrial Rate : 090 BPM P-R Int : 164 ms QRS Dur : 100 ms QT Int : 386 ms P-R-T Axes : 045 -59 052 degrees QTc Int : 472 ms Normal sinus rhythm Possible Left atrial enlargement Left anterior fascicular block Septal infarct , age undetermined Abnormal ECG Confirmed by CROW MCKNIGHT DO ([id number]), field map editor SANJANA CHATMAN ([id number]) on 01/03/2020 1:26:35 PM Referred By: Confirmed By:CROW MCKNIGHT DO
== END 2019-12-30 20:55 | disposition home or self-care (01) ==
LOC: ERS 13:28
DX: E10.65 Type 1 diabetes mellitus with hyperglycemia (principal); E10.40 Type 1 diabetes mellitus with diabetic neuropathy, unspecified; N18.30 Chronic kidney disease, stage 3 unspecified; E10.22 Type 1 diabetes mellitus with diabetic chronic kidney disease; E10.319 Type 1 diabetes mellitus with unspecified diabetic retinopathy without macular edema; M06.9 Rheumatoid arthritis, unspecified; I10 Essential (primary) hypertension; F41.9 Anxiety disorder, unspecified; F32.9 Major depressive disorder, single episode, unspecified; Z79.4 Long term (current) use of insulin; Z79.899 Other long term (current) drug therapy
CPT/HCPCS: 36415; 36416; 71045; 80053; 81003; 82010; 83880; 84484; 85025; 93005; 96365; J2550

== ENCOUNTER 2020-06-10 10:12 | Outpatient (CLI) | payer BC | END 2020-06-10 10:13 | disposition home or self-care (01) | LOC: RAD-FRANK 10:12 | PROVIDERS: ATTEND Nurse Practitioner Family | DX: M47.26 Other spondylosis with radiculopathy, lumbar region (principal) | CPT/HCPCS: 72100 ==

== ENCOUNTER 2022-08-29 00:38 | Emergency (ER) | payer OTHER ==
[2022-08-29 01:28] LABS: #Monocytes 0.8 thou/uL (0.11-0.59); #Neutrophils 6.9 thou/uL (1.40-6.50); %Basophils 0.1 % (0.0-1.0); %Monocytes 8.4 % (0.0-10.0); %Neutrophils 76.1 % (42.0-75.0); Hemoglobin 11.5 g/dL (12.0-16.0); Mean Corpuscular HGB CONC 32.9 g/dL (32.0-36.0); Mean Corpuscular Hemoglobin 28.1 pg (27.0-31.0); Mean Corpuscular Volume 85.6 fl (78.0-98.0); Mean Platelet Volume 9.3 fL (7.4-10.4); Platelet Count 347 10x3/uL (130-400); Red Blood Cell (RBC) Count 4.09 mill/uL (4.20-5.40)
[2022-08-29 01:49] LABS: ALT (SGPT) 50 U/L (8-55); AST (SGOT) 67 U/L (5-34); Albumin 4.3 g/dL (3.5-5.0); Alkaline Phosphatase 112 U/L (40-110); Anion Gap 13 mmol/L (10-20); BUN (Urea Nitrogen) 20 mg/dL (9.8-20.1); Calc. Creatinine Clearance 0 mL/min (70-130); Calcium 9.5 mg/dL (7.8-10.44); Carbon Dioxide 26 mmol/L (22-29); Chloride 102 mmol/L (98-107); Estimated GFR 39; Globulin 3.2 g/dL (2.4-3.5); Glucose 155 mg/dL (70-105); Potassium 3.1 mmol/L (3.5-5.1); Protein, Total 7.5 g/dL (6.0-8.3); Sodium 138 mmol/L (136-145)
[2022-08-29 01:55] LABS: Bilirubin, Total Less than 1.0 mg/dL (0.2-1.2)
== END 2022-08-29 03:38 | disposition home or self-care (01) ==
LOC: ERS 00:38
DX: E16.2 Hypoglycemia, unspecified (principal); E10.40 Type 1 diabetes mellitus with diabetic neuropathy, unspecified; E10.22 Type 1 diabetes mellitus with diabetic chronic kidney disease; N18.30 Chronic kidney disease, stage 3 unspecified; I12.9 Hypertensive chronic kidney disease with stage 1 through stage 4 chronic kidney disease, or unspecified chronic kidney disease; Z79.899 Other long term (current) drug therapy; Z79.4 Long term (current) use of insulin
CPT/HCPCS: 36416; 80053; 85025; 93005; 94760

== ENCOUNTER 2022-08-31 08:26 | Outpatient (CLI) | payer OTHER, MEDICAID | END 2022-08-31 08:27 | disposition home or self-care (01) | LOC: RAD 08:26 | PROVIDERS: ATTEND Nurse Practitioner Family | DX: G45.9 Transient cerebral ischemic attack, unspecified (principal) | CPT/HCPCS: 74230 ==

== ENCOUNTER 2022-11-09 12:44 | Outpatient (CLI) | payer OTHER, MEDICAID | END 2022-11-09 12:45 | disposition home or self-care (01) | LOC: BICMAMMO 12:44 | PROVIDERS: ATTEND Nurse Practitioner Family | DX: Z12.31 Encounter for screening mammogram for malignant neoplasm of breast (principal); Z91.89 Other specified personal risk factors, not elsewhere classified | CPT/HCPCS: 77063; 77067 ==